=== PATIENT | female | born 1950 | race Native Hawaiian/Other Pacific Islander ===

== ENCOUNTER 2019-03-28 14:42 | Outpatient (CLI) | payer OTHER ==
[2019-03-28 14:56] LABS: PLATELET COUNT 188 K/uL (152-353)
[2019-03-28 15:23] LABS: POTASSIUM 4.1 mmol/L (3.6-5.2)
== END 2019-03-28 23:13 | disposition home or self-care (01) ==
LOC: LAB 14:42
PROVIDERS: Internal Medicine
DX: R53.83 Other fatigue (principal); E11.9 Type 2 diabetes mellitus without complications; E55.9 Vitamin D deficiency, unspecified; E53.8 Deficiency of other specified B group vitamins
CPT/HCPCS: 80053; 80061; 82306; 82607; 83036; 84443; 85027

== ENCOUNTER 2019-07-05 08:12 | Outpatient (CLI) | payer OTHER ==
[2019-07-05 09:47] LABS: POTASSIUM 3.7 mmol/L (3.6-5.2)
[2019-07-05 09:48] LABS: PLATELET COUNT 205 K/uL (152-353)
== END 2019-07-05 16:00 | disposition home or self-care (01) ==
LOC: RAD 08:12
PROVIDERS: Nurse Practitioner Family
DX: R21 Rash and other nonspecific skin eruption (principal); Z79.899 Other long term (current) drug therapy
CPT/HCPCS: 36415; 80053; 82164; 82955; 84120; 85027

== ENCOUNTER 2019-07-20 08:10 | Outpatient (CLI) | payer OTHER | END 2019-07-20 19:03 | disposition home or self-care (01) | LOC: LABW 08:10 | DX: Z79.899 Other long term (current) drug therapy (principal) | CPT/HCPCS: 84120 ==

== ENCOUNTER 2019-07-24 07:39 | Outpatient (CLI) | payer OTHER | END 2019-07-24 19:53 | disposition home or self-care (01) | LOC: LABW 07:39 | DX: Z79.899 Other long term (current) drug therapy (principal) | CPT/HCPCS: 84120 ==